=== PATIENT | male | born 1995 | race Caucasian/White ===

== ENCOUNTER 2021-05-21 17:50 | Emergency (ER) | payer SELFPAY ==
[~2021-05-21] VITALS: Ht 172.7 cm; Wt 68.0 kg
[2021-05-21 17:57] VITALS: BP 118/73
== END 2021-05-22 01:14 | disposition left against medical advice (07) ==
LOC: ER 17:50
DX: Z53.21 Procedure and treatment not carried out due to patient leaving prior to being seen by health care provider (principal)